=== PATIENT | male | born 1970 | race Caucasian/White ===

== ENCOUNTER 2022-08-18 10:08 | Inpatient (IN) | payer OTHER ==
[~2022-08-18] VITALS: Ht 180.3 cm; Wt 114.8 kg
[2022-08-18 11:24] LABS: BASOPHILS ABSOLUTE AUTO 0.03 K/mm3 (0.00-0.23); BASOPHILS PERCENT AUTO 0 % (0-2); EOSINOPHILS PERCENT AUTO 0 % (0-6); Hematocrit 42.5 % (37.0-53.0); Hemoglobin 15.3 g/dL (13.5-17.5); IMMATURE GRAN ABSOLUTE AUTO 0.06 K/mm3 (0.00-0.10); IMMATURE GRAN PERCENT AUTO 0 % (0-1); LYMPHOCYTES ABSOLUTE AUTO 0.92 K/mm3 (0.84-5.20); LYMPHOCYTES PERCENT AUTO 6 % (21-46); MONOCYTES ABSOLUTE AUTO 1.11 K/mm3 (0.16-1.47); MONOCYTES PERCENT AUTO 8 % (4-13); Mean Corpuscular HGB 28.1 pg (26.0-34.0); Mean Corpuscular Volume 78 fL (80-100); Mean Platelet Volume 9.9 fL (9.1-12.4); NEUTROPHILS ABSOLUTE AUTO 12.73 K/mm3 (1.96-9.15); NEUTROPHILS PERCENT AUTO 86 % (41-73); Platelet Count 260 K/mm3 (150-400); RDW Coefficient Variation 13.2 % (11.7-14.2); RDW Standard Deviation 37.1 fL (35.1-46.3); Red Blood Cell Count 5.44 M/mm3 (4.30-5.90); White Blood Cell Count 14.85 K/mm3 (4.00-11.30)
[2022-08-18 11:58] LABS: Albumin, Blood 3.9 g/dL (3.4-5.0); Albumin/Globulin Ratio 1.2 (0.8-1.8); Bilirubin, Total 0.9 mg/dL (0.1-1.0); Creatinine, Blood 1.19 mg/dL (0.60-1.20); Globulin, Blood 3.2 g/dL (2.2-4.0); Potassium, Blood 3.2 mmol/L (3.5-5.5); Total Protein, Blood 7.1 g/dL (6.4-8.2)
[2022-08-18] MEDS ORDERED: ATORVASTATIN CA20 MG PO (14:24)
[2022-08-18] MEDS ORDERED: AMLODIPINE BESY10 MG PO (14:24)
[2022-08-18] MEDS ORDERED: GLIP10 PO (14:24)
[2022-08-18] MEDS ORDERED: CHLO25B PO (14:24)
[2022-08-18] MEDS ORDERED: METF500 PO (14:25)
[2022-08-18] MEDS ORDERED: LOSA25 PO (14:25)
[2022-08-18] MEDS ORDERED: CATAPRES0.1 MG PO (14:25)
[2022-08-18 15:14] LABS: Ethanol (Alcohol), Blood, Med <3 mg/dL; Magnesium, Blood 1.4 mg/dL (1.6-2.4)
[2022-08-18 17:51] LABS: Triglycerides 120 mg/dL (30-160)
--- NOTE | 2022-08-18 19:38 | NUR ---
SHIFT SUMMARY: PT A/O X 4 IND TO BED. ADMITTED TO ROOM 360. REPORT RECEIVED FROM GAME PROTECTOR MELY CHENG. PT REPORTING MID ABD PAIN OF 10/10 ON ADMISSION AND NAUSEA. ALSO GOT CRITICAL LAB VALUE OF LACTIC ACID AT 3.6. PT ALSO HAD 100.[address] ALEJANDRE NOTIFIED AND ORDERS RECEIVED FOR BOLUS LR, TYLENOL, RECHECK LACTIC ACID IN TWO HOURS, DC LOBETELOL. ORDERS PROCESSED. PT GIVEN DILAUDID AND ZOFRAN WHICH HE REPORTED TO RESOLVE NAUSEA AND PAIN 7/10. PT FAMILY BROUGHT CPAP AND RT WAS NOTIFIED. REPORTED EVENTS TO ONCOMING RN.
--- NOTE | 2022-08-19 04:17 | NUR ---
SHIFT SUMMARY A&O X 4. VSS. HAS LOW GRADE FEVER, GIVEN PRN TYLENOL. PAIN MANAGEMENT WITH PRN DILAUDID IV, Q2H, WITH GOOD RESULT. STANDBY ASSIST TO BATHROOM. WEARS CPAP AT NIGHT.
[2022-08-19 05:46] LABS: BASOPHILS ABSOLUTE AUTO 0.03 K/mm3 (0.00-0.23); BASOPHILS PERCENT AUTO 0 % (0-2); EOSINOPHILS PERCENT AUTO 0 % (0-6); Hematocrit 40.2 % (37.0-53.0); Hemoglobin 14.3 g/dL (13.5-17.5); IMMATURE GRAN ABSOLUTE AUTO 0.07 K/mm3 (0.00-0.10); IMMATURE GRAN PERCENT AUTO 0 % (0-1); LYMPHOCYTES ABSOLUTE AUTO 0.81 K/mm3 (0.84-5.20); LYMPHOCYTES PERCENT AUTO 5 % (21-46); MONOCYTES ABSOLUTE AUTO 1.33 K/mm3 (0.16-1.47); MONOCYTES PERCENT AUTO 8 % (4-13); Mean Corpuscular HGB 28.4 pg (26.0-34.0); Mean Corpuscular HGB Conc 35.6 g/dL (31.5-36.5); Mean Corpuscular Volume 80 fL (80-100); Mean Platelet Volume 9.9 fL (9.1-12.4); NEUTROPHILS ABSOLUTE AUTO 14.23 K/mm3 (1.96-9.15); NEUTROPHILS PERCENT AUTO 86 % (41-73); Platelet Count 244 K/mm3 (150-400); RDW Standard Deviation 39.9 fL (35.1-46.3); Red Blood Cell Count 5.04 M/mm3 (4.30-5.90); White Blood Cell Count 16.47 K/mm3 (4.00-11.30)
[2022-08-19 06:06] LABS: Albumin, Blood 3.2 g/dL (3.4-5.0); Albumin/Globulin Ratio 0.9 (0.8-1.8); Bilirubin, Total 0.9 mg/dL (0.1-1.0); Bun/Creatinine Ratio 16.7 (12.0-20.0); Calcium, Blood 8.4 mg/dL (8.5-10.1); Creatinine, Blood 1.08 mg/dL (0.60-1.20); Globulin, Blood 3.4 g/dL (2.2-4.0); Potassium, Blood 3.1 mmol/L (3.5-5.5); Total Protein, Blood 6.6 g/dL (6.4-8.2)
[2022-08-19 06:44] LABS: International Normalized Ratio 1.09; Prothrombin Time Results 11.4 Sec (9.7-11.5)
--- NOTE | 2022-08-19 16:48 | NUR ---
SHIFT SUMMARY: PT A/O X 4 IND IN ROOM. PLEASANT AND COOPERATIVE. PT HAD ABD PAIN THROUGHOUT THE DAY BUT REPORTED IT WAS TOLERABLE. LAST DOSE OF DILAUDID WAS THIS MORNING. PT HAS HAD NO COMPLAINTS OF NAUSEA THROUGHOUT THE DAY. TOLERATING ICE CHIPS. CONTINUES TO HAVE LOW GRADE TEMP. PT REPORTS HE IS STILL BURPING BUT NOT PASSING GAS AT THIS TIME. HYPOACTIVE BOWEL SOUNDS. ABD CONTINUES TO BE HARD AND DISTENDED.
--- NOTE | 2022-08-20 04:06 | NUR ---
SHIFT SUMMARY ALERT AND ORIENTED. VSS. HAS HIGH TEMP, GIVEN PRN TYLENOL. C/O OF ABDOMINAL PAIN 04/16. PAIN MANAGED WITH IV DILAUDID Q2H PRN. NPO, CONTINUOUS LR AT 125ML/HR. STANDBY ASSIST TO BATHROOM.
[2022-08-20 06:16] LABS: Bun/Creatinine Ratio 17.1 (12.0-20.0); Calcium, Blood 7.8 mg/dL (8.5-10.1); Creatinine, Blood 1.11 mg/dL (0.60-1.20); Potassium, Blood 3.2 mmol/L (3.5-5.5)
--- NOTE | 2022-08-20 16:47 | NUR ---
DAYSHIFT SUMMARY Patient doing well today, denies N/V, stated last episode of emesis was 2 days ago in ER. C/o umbilical & back pain. Transitioned to oral pain meds, Oxycodone given for pain, PRN effective. Started clear liquid diet today, patient tolderated diet, advanced to full liquid for dinner. CBGs changed to ac/hs, SSI insulin administred. Temporal temp readings, showed temp of 99. Reassessed with oral thermameter, and temps afebrile 97.9-98.5. Vitals stable, afebrile. Will continue plan of care.
--- NOTE | 2022-08-20 19:34 | NUR ---
AWAKE. DENIES PAIN AND LOSS OF FEELING. ATTENTIVE TO QUESTIONS ASKED. CALL LIGHT IN REACH.
--- NOTE | 2022-08-21 03:10 | NUR ---
BRICKLAYER HELPER SUMMARY TEMP AND BP SLIGHTLY ELEVATED, OTHERWISE VSS. SOME PAIN OF ABD, MEDICATIONS EFFECTIVE. UP TO BATHROOM A FEW TIMES OTHERWISE HAS BEEN RESTING QUIETLY WITH FEW INTERRUPTIONS. CALL LIGHT IN REACH. VOICED NO BMS FOR A FEW DAYS, NOTIFIED AND HEMANT ORDERED BID. TOLERATING PO FLUIDS WELL. WILL CONTINUE TO MONITOR.
[2022-08-21 09:47] LABS: Bun/Creatinine Ratio 19.8 (12.0-20.0); Calcium, Blood 7.9 mg/dL (8.5-10.1); Creatinine, Blood 0.91 mg/dL (0.60-1.20); Potassium, Blood 3.3 mmol/L (3.5-5.5)
--- NOTE | 2022-08-21 17:29 | NUR ---
SHIFT SUMMARY PT IS ALERT AND ORIENTED X4 AND ABLE TO AMBULATE WITHOUT ASSISTANCE. PT HAS CONTINUED CONSTIPATION. NO BM THIS SHIFT. EDUCATION PROVIDED TO PT ON BENEFITS OF GETTING OUT OF BED AND WALKING TO HELP WITH CONSTIPATION. PT AGREES AND WALKED 2X AROUND THE UNIT FLOOR. PT IS HAVING INTERMITTENT NAUSEA. NAUSEA TREATED PER EMAR. CALL LIGHT IS WITHIN REACH AND BED IS IN THE LOWEST POSITION.
--- NOTE | 2022-08-22 03:22 | NUR ---
SHIFT SUMMARY NO OVERNIGHT EVENTS. PT REPORTS MILD ABDOMINAL PAIN, NOT NEEDING PAIN MEDICATION. STATES NAUSEA WHEN EATING, NO NAUSEA OVERNIGHT. DENIES ANY CP/SOB, ANY OTHER S/S OF DISTRESS. PT ON CPAP OVERNIGHT. AMBULATES INDEPENDENTLY IN ROOM. ABLE TO MAKE NEEDS KNOWN, CALL LIGHT IN REACH.
[2022-08-22 05:13] LABS: Hematocrit 35.6 % (37.0-53.0); Hemoglobin 12.5 g/dL (13.5-17.5); Mean Corpuscular HGB 28.5 pg (26.0-34.0); Mean Corpuscular HGB Conc 35.1 g/dL (31.5-36.5); Mean Corpuscular Volume 81 fL (80-100); Mean Platelet Volume 9.8 fL (9.1-12.4); Platelet Count 222 K/mm3 (150-400); RDW Coefficient Variation 14.2 % (11.7-14.2); RDW Standard Deviation 42.4 fL (35.1-46.3); Red Blood Cell Count 4.39 M/mm3 (4.30-5.90)
[2022-08-22 06:11] LABS: Bun/Creatinine Ratio 18.3 (12.0-20.0); Calcium, Blood 8.1 mg/dL (8.5-10.1); Creatinine, Blood 0.88 mg/dL (0.60-1.20); Potassium, Blood 3.5 mmol/L (3.5-5.5)
--- NOTE | 2022-08-22 17:38 | NUR ---
SUMMARY- PT A/O X4, INDEPENDANT, VOIDING IN BATHROOM. HAD SM BM TODAY. ABD DISTENDED BUT PT STATES IT FEELS NORMAL. BT NORMOACTIVE. TOLERATING FOOD AND FLUIDS. DRINKS ALOT OF WATER. GIVEN MIRILAX, STATES NO BM SINCE OF LAST WEEK. DENIES ABD PAIN , STATES ONLY A RESIDUAL KNAWING DISCOMFORT BUT DECLINES PAIN MEDS. NO NAUSEA THIS SHIFT.
--- NOTE | 2022-08-23 03:41 | NUR ---
SHIFT SUMMARY NO OVERNIGHT EVENTS. PT DENIES ANY NAUSEA, REPORTS MILD ABDOMINAL PAIN. PT NOT WANTING PAIN MEDICATION FOR THE MILD PAIN. PT REPORTS CONSTIPTATION, GAVE PRUNE JUICE. PT AMBULATES INDEPENDENTLY IN ROOM. PT ORIENTED X4, ABLE TO MAKE NEEDS KNOWN, CALL LIGHT IN REACH.
[2022-08-23 05:20] LABS: BASOPHILS ABSOLUTE AUTO 0.04 K/mm3 (0.00-0.23); BASOPHILS PERCENT AUTO 0 % (0-2); EOSINOPHILS ABSOLUTE AUTO 0.16 K/mm3 (0.00-0.68); EOSINOPHILS PERCENT AUTO 2 % (0-6); Hematocrit 35.4 % (37.0-53.0); Hemoglobin 12.5 g/dL (13.5-17.5); IMMATURE GRAN ABSOLUTE AUTO 0.22 K/mm3 (0.00-0.10); IMMATURE GRAN PERCENT AUTO 2 % (0-1); LYMPHOCYTES ABSOLUTE AUTO 0.94 K/mm3 (0.84-5.20); LYMPHOCYTES PERCENT AUTO 9 % (21-46); MONOCYTES ABSOLUTE AUTO 1.02 K/mm3 (0.16-1.47); MONOCYTES PERCENT AUTO 10 % (4-13); Mean Corpuscular HGB 27.9 pg (26.0-34.0); Mean Corpuscular HGB Conc 35.3 g/dL (31.5-36.5); Mean Corpuscular Volume 79 fL (80-100); Mean Platelet Volume 9.7 fL (9.1-12.4); NEUTROPHILS PERCENT AUTO 76 % (41-73); Platelet Count 219 K/mm3 (150-400); RDW Coefficient Variation 14.1 % (11.7-14.2); Red Blood Cell Count 4.48 M/mm3 (4.30-5.90); White Blood Cell Count 9.98 K/mm3 (4.00-11.30)
[2022-08-23 05:46] LABS: Albumin, Blood 2.1 g/dL (3.4-5.0); Anion Gap 8 mmol/L (6-16); Blood Urea Nitrogen 14 mg/dL (8-24); CO2, Blood 26 mmol/L (21-32); Calcium, Blood 8.2 mg/dL (8.5-10.1); Chloride, Blood 97 mmol/L (98-108); Creatinine, Blood 0.87 mg/dL (0.60-1.20); Glomerular Filtration Rate 103 (60-); Glucose, Blood 197 mg/dL (70-99); Phosphorus, Blood 2.6 mg/dL (2.5-4.9); Potassium, Blood 3.4 mmol/L (3.5-5.5); Sodium, Blood 131 mmol/L (136-145)
[2022-08-23] MEDS ORDERED: MIRALAX17 GM PO (09:59)
[2022-08-23] MEDS ORDERED: TRAM50 PO (10:00)
--- NOTE | 2022-08-23 11:13 | NUR ---
PT DC'D WITH INSTRUCTIONS 1100- BROTHER PICKED UP AND DRIVING HOME. SENT HOME WITH BELONGINGS.
== END 2022-08-23 11:08 | disposition home or self-care (01) | DRG 439 ==
LOC: ER 10:08 → MEDS 15:20
PROVIDERS: Emergency Medicine; Family Medicine; Internal Medicine; Nurse Practitioner Acute Care; Physician Assistant; ADMIT Student in an Organized Health Care Education/Training Program
PROC: 5A09357 Assistance with Respiratory Ventilation, Less than 24 Consecutive Hours, Continuous Positive Airway Pressure (ICD-10-PCS; principal; 2022-08-18)
DX: K85.90 Acute pancreatitis without necrosis or infection, unspecified (principal); E87.1 Hypo-osmolality and hyponatremia; E87.20 Acidosis, unspecified; R65.10 Systemic inflammatory response syndrome (SIRS) of non-infectious origin without acute organ dysfunction; E11.9 Type 2 diabetes mellitus without complications; D72.829 Elevated white blood cell count, unspecified; E87.6 Hypokalemia; I10 Essential (primary) hypertension; K76.0 Fatty (change of) liver, not elsewhere classified; D64.9 Anemia, unspecified; E83.42 Hypomagnesemia; K42.9 Umbilical hernia without obstruction or gangrene; E78.5 Hyperlipidemia, unspecified; G47.33 Obstructive sleep apnea (adult) (pediatric); E66.01 Morbid (severe) obesity due to excess calories; Z88.0 Allergy status to penicillin; Z79.899 Other long term (current) drug therapy; Z79.02 Long term (current) use of antithrombotics/antiplatelets; Z79.84 Long term (current) use of oral hypoglycemic drugs; Z68.33 Body mass index [BMI] 33.0-33.9, adult
CPT/HCPCS: 36415; 74177; 76705; 80048; 80053; 80069; 82947; 83605; 83690; 83735; 84145; 84478; 85025; 85027; 85610; 87040; 94660; 94762; 96365-59; 96366; 96375; 99285-25; A9270; G0480; J0360; J1170; J1650; J1885; J2270; J2405; J2765; J3475; J3480; J7030; J7050; J7120; Q9967

== ENCOUNTER → 2025-08-05 | Outpatient (CLI) | payer OTHER ==
[~2025-08-05] MED LIST: AMLODIPINE BESY10 MG PO; ATORVASTATIN CA20 MG PO; CATAPRES0.1 MG PO; CHLO25B PO; GLIP10 PO; LOSA25 PO; METF500 PO; MIRALAX17 GM PO; TRAM50 PO
[2025-08-05 11:31] LABS: BASOPHILS ABSOLUTE AUTO 0.06 K/mm3 (0.00-0.23); BASOPHILS PERCENT AUTO 1 % (0-2); EOSINOPHILS ABSOLUTE AUTO 0.18 K/mm3 (0.00-0.68); EOSINOPHILS PERCENT AUTO 3 % (0-6); Hematocrit 44.9 % (37.0-53.0); Hemoglobin 16.0 g/dL (13.5-17.5); IMMATURE GRAN ABSOLUTE AUTO 0.04 K/mm3 (0.00-0.10); IMMATURE GRAN PERCENT AUTO 1 % (0-1); LYMPHOCYTES ABSOLUTE AUTO 1.51 K/mm3 (0.84-5.20); LYMPHOCYTES PERCENT AUTO 28 % (21-46); MONOCYTES ABSOLUTE AUTO 0.56 K/mm3 (0.16-1.47); MONOCYTES PERCENT AUTO 10 % (4-13); Mean Corpuscular HGB Conc 35.6 g/dL (31.5-36.5); Mean Corpuscular Volume 83 fL (80-100); NEUTROPHILS ABSOLUTE AUTO 3.01 K/mm3 (1.96-9.15); NEUTROPHILS PERCENT AUTO 56 % (41-73); NRBC ABSOLUTE 0.00 K/mm3 (0.00-0.02); NRBC Auto 0.0 /100 WBC (0.0-0.2); Platelet Count 168 K/mm3 (150-400); RDW Coefficient Variation 13.7 % (11.7-14.2); RDW Standard Deviation 41.4 fL (35.1-46.3)
[2025-08-05 11:52] LABS: Alanine Aminotransfer (ALT/SGP 54.0 U/L (12-78); Albumin, Blood 3.8 g/dL (3.4-5.0); Albumin/Globulin Ratio 1.1 (0.8-1.8); Anion Gap 13.0 mmol/L (3-11); Aspartate Aminotrans (AST/SGOT 22.0 U/L (12-37); Bilirubin, Total 0.6 mg/dL (0.1-1.0); Blood Urea Nitrogen 21.0 mg/dL (8-24); CO2, Blood 28.0 mmol/L (21-32); Calcium, Blood 9.0 mg/dL (8.5-10.1); Chloride, Blood 98.0 mmol/L (98-108); Creatinine, Blood 1.65 mg/dL (0.60-1.20); Globulin, Blood 3.6 g/dL (2.2-4.0); Glucose, Blood 263.0 mg/dL (70-99); Magnesium, Blood 1.9 mg/dL (1.6-2.4); Potassium, Blood 3.6 mmol/L (3.5-5.5); Sodium, Blood 135.0 mmol/L (136-145); Thyroid Stimulating Hormone 0.905 uIU/mL (0.360-4.800); Total Protein, Blood 7.4 g/dL (6.4-8.2)
== END | disposition home or self-care (01) ==
LOC: LAB 11:26 → LAB SHORT 11:26
PROVIDERS: Chiropractor
DX: R07.9 Chest pain, unspecified (principal); R53.83 Other fatigue; R60.0 Localized edema; R73.9 Hyperglycemia, unspecified
CPT/HCPCS: 80053; 83036; 83735; 83880; 84443; 84484; 85025; 85379